=== PATIENT | male | born 1985 | race Caucasian/White ===

== ENCOUNTER 2020-09-20 11:32 | Emergency (ER) | payer BC ==
[2020-09-20 11:56] VITALS: BP 146/92
[2020-09-20 12:21] LABS: RAPID STREP SCREEN Negative (Negative)
--- NOTE | 2020-09-20 12:32 | ED Physician Documentation ---
History of Present Illness - Stated complaint Stated Complaint: LOCO,FEVER - Chief complaint Chief Complaint: Fever - History obtained from History obtained from: Patient - Additonal information Additional information: 34-year-old gentleman got sick yesterday with body aches, cough, runny nose and sore throat. Also headache especially when he coughs. No known sick contacts. He is fully immunized against Covid having had a second mRNA vaccine a few months ago. He is not sure which brand. Review of Systems Constitutional: reports: Fever, Chills, Myalgias, Fatigue Nose: reports: Rhinorrhea / runny nose Throat: reports: Sore throat Respiratory: reports: Cough. denies: Dyspnea GI: denies: Nausea PD PAST MEDICAL HISTORY - Present Medications Home Medications: Ambulatory Orders Medication Instructions Recorded Confirmed Benzonatate [Tessalon] 200 mg PO QID PRN #20 cap 09/20/20 - Allergies Allergies/Adverse Reactions: Allergies Allergy/AdvReac Type Severity Reaction Status Date / Time No Known Drug Allergies Allergy Verified 09/20/20 11:55 PD ED PE NORMAL - Vitals Vital signs reviewed: Yes - General General: Alert and oriented X 3, No acute distress - HEENT HEENT: PERRL, EOMI, Pharynx benign - Neck Neck: Supple, no meningeal sign, No bony TTP, No adenopathy - Cardiac Cardiac: RRR, No murmur - Respiratory Respiratory: No respiratory distress, Clear bilaterally - Abdomen Abdomen: Normal bowel sounds, Soft, Non tender - Back Back: No CVA TTP, No spinal TTP - Derm Derm: Normal color, Warm and dry - Extremities Extremities: No edema, No calf tenderness / cord - Neuro Neuro: Alert and oriented X 3, Normal speech Results - Vitals Vitals: Vital Signs - 24 hr 09/20/20 11:51 Temperature 37.0 C Heart Rate 99 Respiratory 16 Rate Blood Pressure 146/92 H O2 Saturation 100 Oxygen O2 Source Room air - Labs Labs: Laboratory Tests 09/20/20 11:58 Group A Strep Rapid Negative PD MEDICAL DECISION MAKING - ED course ED course: 34-year-old gentleman with nonspecific viral syndrome. Strep test is negative, throat is benign. Covid test is pending but unlikely, the early onset of cough and immunization status would weigh against that, that said need for quarantine until results as discussed. Departure - Departure Disposition: 01 Home, Self Care Clinical Impression: Viral syndrome Condition: Good Record reviewed to determine appropriate education?: Yes Instructions: ED Viral Syndrome Prescriptions: Benzonatate [Tessalon] 200 mg PO QID PRN #20 cap PRN Reason: Cough Comments: Ibuprofen 800 mg every 8 hours as needed for pain and aches and headache. I am also prescribing something for cough. You have a Covid test pending. You need to self quarantine until the result is done and negative. Do not leave your house. Do not get near anybody. The results should be done in 48 to 72 hours. We will call with a positive result, the fastest way to get a negative result for confirmation though is to go to the hospital website at [email or web address], click on the my [facility] tab and sign up for the patient portal. If any friends or family get sick and would like to have a Covid test done, but do not have signs or symptoms that would necessitate being hospitalized, we encourage testing through our coronavirus swabbing station, call [phone] to schedule an appointment. Forms: Activity restrictions
== END 2020-09-20 12:36 | disposition home or self-care (01) ==
LOC: ED 11:32
DX: B34.9 Viral infection, unspecified (principal); Z20.822 Contact with and (suspected) exposure to COVID-19
CPT/HCPCS: 87070; 87430; 99283; 99284

== ENCOUNTER 2021-04-28 15:38 | Outpatient (CLI) | payer BC ==
--- NOTE | 2021-04-28 16:24 | XRAY Report ---
PROCEDURE: Knee 3 View RT INDICATIONS: INTERNAL DERANGEMENT OF R KNEE TECHNIQUE: 3 views of the right knee(s) were acquired. COMPARISON: None. FINDINGS: BONES/JOINT: No acute, displaced fracture or dislocation. Small suprapatellar joint effusion. Evidenc e of ACL reconstruction is noted. SOFT TISSUES: No significant abnormality. IMPRESSION: 1.No acute osseous abnormality. Reviewed by: Adam Stanford MD on 04/28/2021 4:23 PM PDT Approved by: Adam Stanford MD on 04/28/2021 4:23 PM PDT Station ID: [id number]
== END 2021-04-28 23:59 | disposition home or self-care (01) ==
LOC: DI.N 15:38
PROVIDERS: ATTEND Family Medicine
DX: M23.91 Unspecified internal derangement of right knee (principal)